=== PATIENT | male | born 1975 | race Caucasian/White ===

== ENCOUNTER 2021-01-20 13:23 | Observation (INO) ==
--- NOTE | 2021-01-20 18:35 | Emergency Department Note ---
History of Present Illness General Chief complaint: Swelling/Edema to Extremity Stated complaint: FEET & ANKLES SWOLLEN & FEELING NUMB Time Seen by Provider: 01/20/21 18:08 Source: patient Mode of arrival: ambulatory Limitations: no limitations History of Present Illness Maximum Pain Intensity: 3 This patient is 45-year-old male comes in with swelling in both of his ankles bilaterally. He first noticed this this morning is had no history of similar. He has some chronic neuropathy and tingling in his feet which is unchanged. No new numbness or weakness. He has had no shortness of breath or chest pain he tells me he has been having intermittent sharp chest pain for at least 6 months but none recently. He was recently hospitalized for depression and has a history of alcoholism he relapsed 2 to 3 weeks ago but has had no alcohol since then he feels he is doing well in the depression and alcohol aspects and denies that he needs help in either those categories he does not feel he is having withdrawal symptoms he is not been shaky. Denies suicidal or homicidal ideations. He has been take his medications as directed denies any overdose or extra medication denies aspirin or Tylenol or any drug use. No history of cardiac disease or pulmonary disease or renal problems. He was recently started on prazosin and mirtazapine. Home Medications Medication Instructions Recorded Confirmed Type mirtazapine 15 mg tablet 15 mg PO HS 01/20/21 01/20/21 History prazosin 1 mg capsule 1 mg PO HS 01/20/21 01/20/21 History Allergies Allergy/AdvReac Type Severity Reaction Status Date / Time No Known Allergies Allergy Mild Unverified 11/18/20 21:46 Past Med/Surg History Medical History (Updated 01/20/21 @ 20:59 by Giuseppe Castro MD) No pertinent past medical history Surgical History No pertinent past surgical history Family History Other No pertinent family history in first degree relatives Social History Smoking Status: Current some day smoker Tobacco Type: Cigarettes Preferred Language: [place] Feels Safe at Home: Yes Immunizations: Past medical historyneuropathy, alcoholism, depression. Denies diabetes or thyroid or kidney disease Review of Systems A total of 10 systems reviewed and were otherwise negative Physical Exam Vital Signs Vital Signs - 24 hr 01/20/21 13:36 01/20/21 19:03 01/20/21 21:04 Temperature 36.8 C Temperature Source Temporal Artery Scan Pulse Rate 78 76 Pulse Rate [Finger] 76 85 Respiratory Rate 18 Blood Pressure 193/110 H Blood Pressure [Left Arm] 183/122 H 178/111 H Blood Pressure Mean 137 Blood Pressure Mean [Left Arm] 142 133 Pulse Oximetry 97 95 95 Oxygen Delivery Method Room Air Room Air Room Air Sepsis Recent Fever Within 48 Hours No Sepsis New/Unexplained Change in Mental Status No Sepsis Action Taken by Nursing No Action Required General: Well developed well nourished not ill-appearing male who appears in no acute distress, breathing comfortably on room air. Normal speech HEENT: Normal cephalic atraumatic. Pupils are equal round and reactive to light. Extraocular movements are intact. Oropharynx is pink with moist mucous membranes. No swelling of the mouth lips or tongue. Neck: Supple with a midline trachea. No meningeal signs or stiffness, no JVD or bruits. No Stridor. Chest: Clear to auscultation bilaterally. No wheezes or rhonchi. No increased work of breathing. Heart: Regular rate and rhythm without murmurs or gallops. Abdomen: Soft nontender, nondistended without rebound guarding or rigidity. Extremities: No cyanosis clubbing. He has trace to 1+ bilateral lower extremity edema in the ankles and shins. no calf tenderness or assymetry Spine/Back. Non tender to palpation. No CVA tenderness Skin: Good turgor without rashes. Neurologic exam: Cranial nerves two through 12 are intact. Motor and sensation are intact and symmetrical throughout. No tremor. Medical Decision Making Differential Diagnosis CHF, medication side effect, renal disease, toxicologic or metabolic, infectio us, DVT, arterial insufficiency, liver or kidney disease Medical Records Attestation: I reviewed the patient's medical records. Home Medications Current Medication List: was personally reviewed by me Laboratory Data Attestation: I reviewed the patient's lab results. Result diagrams: 01/20/21 18:49 01/20/21 19:59 Lab Results 01/20/21 01/20/21 01/20/21 Range/Units 18:49 18:49 18:49 WBC 10.76 (4.8-10.8) K/uL RBC 4.89 (4.7-6.1) M/uL Hgb 15.0 (14.0-18.0) g/dL Hct 43.6 (42-52) % MCV 89.2 (80-100) fL MCH 30.7 (25-34) pg MCHC 34.4 (32-36) g/dL RDW Std Deviation 41.3 (36.4-46.3) fL RDW Coeff of Manish 12.9 (11.5-14.5) % Plt Count 243 (130-400) K/uL MPV 9.8 (7.4-10.4) fL Immature Gran % (Auto) 0.4 % Neut % (Auto) 59.7 % Lymph % (Auto) 29.0 % Nicholas % (Auto) 9.2 % Eos % (Auto) 1.2 % Baso % (Auto) 0.5 % Neut # (Auto) 6.43 (1.4-6.5) K/uL Lymph # (Auto) 3.12 (1.2-3.4) K/uL Nicholas # (Auto) 0.99 H (0.11-0.59) K/uL Eos # (Auto) 0.13 (0-0.5) K/uL Baso # (Auto) 0.05 (0-0.2) K/uL Immature Gran # (Auto) 0.04 H (0.00-0.02) K/uL D-Dimer 530 H* (0-500) ug/L FEU Sodium 141 (136-145) mmol/L Potassium (3.5-5.1) mmol/L Chloride 107 (98-107) mmol/L Carbon Dioxide 23 (21-32) mmol/L Anion Gap 10.0 (3-11) BUN 9 (7-18) mg/dl Creatinine 0.81 (0.6-1.4) mg/dl Est Cr Clr Drug Dosing 169.3 ml/min Est GFR ( Amer) 125.3 ml/min Est GFR (Non-Af Amer) 108.1 ml/min BUN/Creatinine Ratio 11.6 (10-20) Glucose 83 (70-99) mg/dl Calcium 9.1 (8.5-10.1) mg/dl Magnesium (1.8-2.4) mg/dl Total Bilirubin 0.6 (0.2-1) mg/dl AST (15-37) U/L ALT 96 H (12-78) U/L Alkaline Phosphatase 72 (45-117) U/L Troponin I 0.193 H* (0-0.045) ng/ml Total Protein 8.0 (6.4-8.2) gm/dl Albumin 3.7 (3.4-5.0) gm/dl Globulin 4.3 H (2.5-4.0) gm/dl Albumin/Globulin Ratio 0.9 (0.9-2) Lipase 100 (73-393) U/L SARS-CoV-2 (PCR) (Negative) 01/20/21 01/20/21 Range/Units 19:59 20:00 WBC (4.8-10.8) K/uL RBC (4.7-6.1) M/uL Hgb (14.0-18.0) g/dL Hct (42-52) % MCV (80-100) fL MCH (25-34) pg MCHC (32-36) g/dL RDW Std Deviation (36.4-46.3) fL RDW Coeff of Manish (11.5-14.5) % Plt Count (130-400) K/uL MPV (7.4-10.4) fL Immature Gran % (Auto) % Neut % (Auto) % Lymph % (Auto) % Nicholas % (Auto) % Eos % (Auto) % Baso % (Auto) % Neut # (Auto) (1.4-6.5) K/uL Lymph # (Auto) (1.2-3.4) K/uL Nicholas # (Auto) (0.11-0.59) K/uL Eos # (Auto) (0-0.5) K/uL Baso # (Auto) (0-0.2) K/uL Immature Gran # (Auto) (0.00-0.02) K/uL D-Dimer (0-500) ug/L FEU Sodium (136-145) mmol/L Potassium 3.4 L (3.5-5.1) mmol/L Chloride (98-107) mmol/L Carbon Dioxide (21-32) mmol/L Anion Gap (3-11) BUN (7-18) mg/dl Creatinine (0.6-1.4) mg/dl Est Cr Clr Drug Dosing ml/min Est GFR ( Amer) ml/min Est GFR (Non-Af Amer) ml/min BUN/Creatinine Ratio (10-20) Glucose (70-99) mg/dl Calcium (8.5-10.1) mg/dl Magnesium 1.7 L (1.8-2.4) mg/dl Total Bilirubin (0.2-1) mg/dl AST 50 H (15-37) U/L ALT (12-78) U/L Alkaline Phosphatase (45-117) U/L Troponin I (0-0.045) ng/ml Total Protein (6.4-8.2) gm/dl Albumin (3.4-5.0) gm/dl Globulin (2.5-4.0) gm/dl Albumin/Globulin Ratio (0.9-2) Lipase (73-393) U/L SARS-CoV-2 (PCR) NEGATIVE (Negative) Imaging Data Attestation: I personally reviewed and interpreted this imaging study as follows: My Impression: Chest x-rayno acute infiltrate, failure, pneumothorax seen Radiologist's Impression: Chest X-Ray 01/20/21 18:26 XR chest 1V portable CLINICAL HISTORY: Chest Pain. Bilateral leg edema COMPARISON STUDY: No previous studies for comparison. TECHNIQUE: 1 view of the chest FINDINGS: Single frontal view of the chest demonstrates the cardiomediastinal silhouette to be within normal limits. There is asymmetric elevation right hemidiaphragm with crowding of the bronchovascular markings the right lung base. The lungs are otherwise clear of alveolar opacities. There is no evidence for pleural effusion. There is no evidence for vascular congestion. There is no acute osseous pathology. IMPRESSION: No acute cardiopulmonary disease. ACT 112: Negative or not required by law. Electronically signed by: Cole Dodd M.D. 01/20/2021 6:54 PM Venous Doppler Study 01/20/21 20:00 US venous doppler LE BI CLINICAL HISTORY: Bilateral leg swelling COMPARISON: None available at the time of this dictation. TECHNIQUE: Bilateral lower extremity real-time compression venous ultrasound with Color Doppler imaging. Utilizing real-time ultrasonic imaging multiple real time high-resolution ultrasonic images with compression and noncompression maneuvers of the deep ve nous system in addition to color doppler imaging were performed from the common femoral vein through the proximal calf veins. FINDINGS: Currently there is normal compressibility of the deep venous system from the common femoral vein through the proximal calf veins. No current evidence of acute thrombosis is identified. Impression: No evidence of deep venous thrombus. ACT 112: Negative or not required by law. Electronically signed by: Cole Dodd M.D. 01/20/2021 8:46 PM ECG Data Attestation: I personally reviewed and interpreted this ECG as follows: Indication: + other (Lower extremity edema) Rate (beats per minute): 56 Rhythm: + normal sinus (Unusual P wave axis, possible ectopic atrial bradycardia) ECG Intervals/blocks: + Normal QRS, + Normal QT and + Normal MI ECG [place]: + Normal ECG ST segments: + Normal ST segments ECG Findings: no PACs or no PVCs Comparison ECG Date: from (04/28/19) Change: the following changes noted (P wave axis has changed) MDM Narrative This patient comes in as described above. He was placed on a vehicle monitor technician room C9 he has had bilateral lower extremity edema. He looks well. He does not appear to be withdrawing. It symmetrical. His legs not red or warm. IV access was established. EKG was obtained, chest x-ray, and multiple blood testing was obtained. He was reassessed frequently. He does have a history of both alcohol abuse and depression and he says he feels stable on both of these and denies suicidal homicidal ideations and does not feel he needs help for these acutely. His troponin did come back mildly elevated. His EKG does have an unusual axis and may be an ectopic atrial rhythm but there is no ischemic changes. Chest x- ray does not suggest congestive heart failure, pneumonia, or pneumothorax. He has no acute electrolyte or metabolic abnormalities. His D-dimer was mildly elevated in light of this I did ultrasound of his legs they were unremarkable. I did review his medications. He is on prazosin and Remeron which are new. Remeron can cause peripheral edema or potentially exacerbate CHF. He does have a history of alcohol use and is possible he has an cardiomyopathy related to that. I did consult Dr. Helms to see him in the ER for further treatment and evaluation. Continuous cardiac monitoring: An order was placed in EMR for continuous vehicle monitor technician. Upon interpretation patient was done via normal sinus rhythm with a rate of 70. Impression & Plan Ectopic atrial rhythm, Bilateral edema of lower extremity, Elevated troponin, Elevated d-dimer, History of alcohol abuse Discharge Plan Visit Data Chief Complaint: Swelling/Edema to Extremity Stated Complaint: FEET & ANKLES SWOLLEN & FEELING NUMB ED Provider: Giuseppe Castro Discharge Problem: Ectopic atrial rhythm, Bilateral edema of lower extremity, Elevated troponin, Elevated d-dimer, History of alcohol abuse Forms Stand Alone Forms: [facility] [employer] Prescriptions Prescriptions: No Action prazosin 1 mg capsule 1 mg PO HS RF: 0 mirtazapine 15 mg tablet 15 mg PO HS RF: 0 Referrals Referrals: PCP,NO [Physician] -
--- NOTE | 2021-01-20 18:55 | XRay Report ---
XR chest 1V portable CLINICAL HISTORY: Chest Pain. Bilateral leg edema COMPARISON STUDY: No previous studies for comparison. TECHNIQUE: 1 view of the chest FINDINGS: Single frontal view of the chest demonstrates the cardiomediastinal silhouette to be within normal li mits. There is asymmetric elevation right hemidiaphragm with crowding of the bronchovascular markings the right lung base. The lungs are otherwise clear of alveolar opacities. There is no evidence for p leural effusion. There is no evidence for vascular congestion. There is no acute osseous pathology. IMPRESSION: No acute cardiopulmonary disease. ACT 112: Negative or not required by law. Electronically signed by: Cole Dodd M.D. 01/20/2021 6:54 PM
[2021-01-20 19:17] LABS: Basophils # (auto) 0.05 K/uL (0-0.2); Basophils % (auto) 0.5 %; Eosinophils # (auto) 0.13 K/uL (0-0.5); Eosinophils % (auto) 1.2 %; Hematocrit (blood only) 43.6 % (42-52); Immature Granulocytes # (auto) 0.04 K/uL (0.00-0.02); Immature Granulocytes % (auto) 0.4 %; Lymphocytes # (auto) 3.12 K/uL (1.2-3.4); Mean Corpuscular Hemoglobin 30.7 pg (25-34); Mean Corpuscular Hgb Conc 34.4 g/dL (32-36); Mean Corpuscular Volume 89.2 fL (80-100); Mean Platelet Volume 9.8 fL (7.4-10.4); Monocytes # (auto) 0.99 K/uL (0.11-0.59); Monocytes % (auto) 9.2 %; Neutrophils # (auto) 6.43 K/uL (1.4-6.5); Neutrophils % (auto) 59.7 %; Platelet Count 243 K/uL (130-400); RDW Coefficient of Variation 12.9 % (11.5-14.5); RDW Standard Deviation 41.3 fL (36.4-46.3); Red Blood Count 4.89 M/uL (4.7-6.1); White Blood Count 10.76 K/uL (4.8-10.8)
[2021-01-20 19:28] LABS: D Dimer 530 ug/L FEU (0-500)
[2021-01-20 19:55] LABS: Albumin Globulin Ratio 0.9 (0.9-2); Albumin Level 3.7 gm/dl (3.4-5.0); BUN Creatinine Ratio 11.6 (10-20); Bilirubin,Total 0.6 mg/dl (0.2-1); Calcium 9.1 mg/dl (8.5-10.1); Creatinine Clr Calc Pharmacy 169.3 ml/min; Est GFR (African American) 125.3 ml/min; Est GFR (Non-African American) 108.1 ml/min; Globulin 4.3 gm/dl (2.5-4.0); Troponin I 0.193 ng/ml (0-0.045)
[2021-01-20 20:28] LABS: Potassium 3.4 mmol/L (3.5-5.1)
[2021-01-20 20:33] LABS: Magnesium 1.7 mg/dl (1.8-2.4)
--- NOTE | 2021-01-20 20:48 | Ultrasound Report ---
US venous doppler LE BI CLINICAL HISTORY: Bilateral leg swelling COMPARISON: None available at the time of this dictation. TECHNIQUE: Bilateral lower extremity real-time compression venous ultrasound with Color Doppler imagi ng. Utilizing real-time ultrasonic imaging multiple real time high-resolution ultrasonic images with comp ression and noncompression maneuvers of the deep venous system in addition to color doppler imaging w ere performed from the common femoral vein through the proximal calf veins. FINDINGS: Currently there is normal compressibility of the deep venous system from the common femoral vein thro ugh the proximal calf veins. No current evidence of acute thrombosis is identified. Impression: No evidence of deep venous thrombus. ACT 112: Negative or not required by law. Electronically signed by: Cole Dodd M.D. 01/20/2021 8:46 PM
[2021-01-20] MEDS ORDERED: POTASSIUM CHLORIDE CRTAB 20 MEQ TABCR PO STA (22:16)
[2021-01-20 23:22] LABS: Appearance Urine Clear (Clear); Bacteria Urine Automated Negative (Negative); Bilirubin Urine Negative (Negative); Blood Urine Negative (Negative); Cast Urine Automated 0 /lpf (0-5); Color Urine Yellow; Epithelial Cell Urine Auto 0-5 /lpf (0-5); Glucose Urine UA Negative (Negative); Ketones Urine Negative (Negative); Leukocyte Esterase Urine Negative (Negative); Nitrite Urine Negative (Negative); RBC Urine Automated 0-4 /hpf (0-4); Specific Gravity Urine 1.025 (1.000-1.030); Urobilinogen Urine Negative (Negative); pH Urine 7.5 (4.5-7.5)
[2021-01-20 23:35] LABS: Protein Urine 2+ (Negative)
--- NOTE | 2021-01-20 23:36 | History and Physical Report ---
DATE OF ADMISSION: 01/20/2021. CHIEF COMPLAINT: Lower extremity swelling. HISTORY OF PRESENT ILLNESS: This is a 45-year-old male with past medical history significant for alcoholism, depression, generalized anxiety disorder. The patient states he also has high blood pressure, but he is not taking any medications. The patient states he was recently admitted for depression at [facility] 2 weeks ago he was started on medicines, Remeron and prazosin, comes here because of lower extremity edema. The patient says he has noticed his ankle swollen today. Since last 1 week, he has been sick with nausea, vomiting and abdominal discomfort and has some diarrhea, but that got resolved now. Had Sarmad and Sarmad one single shot of COVID vaccine. His COVID PCR negative in the ER. The patient denies any cough or any fevers. He says he has some mild chest discomfort, kind of prickly feeling 4/10 in severity on and off for few months now. Had a headache earlier, but currently no headache, no blurred visions, no runny nose, no sore throat, no cough, no difficulty swallowing. No shortness of breath, no abdominal pain currently. Normal bladder movements. Patient says he used to drink heavily like one bottle of vodka every day, but lately he has cut down, says last drink was about 1 week ago, but he is not getting any withdrawal symptoms. He smokes marijuana every other day. Denies any drug use. ALLERGIES: No known drug allergies. PAST MEDICAL HISTORY: As mentioned above. PAST SURGICAL HISTORY: Skin abscess drainage. MEDICATIONS: Currently placed on prazosin 1 mg p.o. at bedtime, Remeron 250 mg p.o. at bedtime. FAMILY HISTORY: The patient is adopted. SOCIAL HISTORY: Smokes marijuana every other day. Used to drink alcohol 1 bottle of vodka every day, but currently not drinking much, last drink was about a week ago. No drug use. REVIEW OF SYMPTOMS: As per HPI. Rest of the review of symptoms is negative. PHYSICAL EXAMINATION: GENERAL: The patient is of moderate build. The patient is obese, not in acute distress. VITAL SIGNS: Temperature 36.8, pulse 85, respiratory rate 18, blood pressure 178/111, oxygen 95% on room air. HEENT: Pupils equal, round and reactive to light. Oral mucosa moist. NECK: No JVD. No neck masses. CARDIOVASCULAR: S1 and S2 heard. Regular rate and rhythm. No murmur, no gallop. RESPIRATORY SYSTEM: Normal AP diameter. No accessory muscle use. No wheezing, no crackles. ABDOMEN: Soft, bowel sounds present, nontender, no distention. CENTRAL NERVOUS SYSTEM: Cranial nerves II-XII grossly intact, nonfocal. EXTREMITIES: Bilateral ankle edema present, no erythema seen. LABORATORY DATA: WBC 10.7, hemoglobin 15, hematocrit 43.6, platelets 243, D- dimer 530. Sodium 141, potassium 3.4, chloride 107, bicarbonate 23, BUN 9, creatinine 0.8, serum glucose 83, calcium 9.1, magnesium 1.7, total bilirubin 0.6, AST 50, ALT 96, alkaline phosphatase 72. Troponin-I 0.19. Lipase 100. SARS-CoV-2 PCR negative. IMAGING DATA: Venous Doppler negative for DVT. Chest x-ray, no acute cardiopulmonary findings. EKG: Possible atrial bradycardia at a rate of 56. Ectopic atrial rhythm replaced with sinus rhythm. ASSESSMENT AND PLAN: This is a 45-year-old male who presents with lower extremity edema. 1. Lower extremity edema, etiology unclear. Recently started on mirtazapine, prazosin, possibly from meds.. Because of history of alcoholism, will rule out congestive heart failure with echocardiogram, monitor in [employer]. 2. Mild chest discomfort going on for few months now. Mild elevation of troponin, rule out acute coronary syndrome with serial enzymes, echocardiogram, and as D-dimer was elevated rule out pulmonary embolism with CT angio and consult Cardiology in the a.m. for further recommendations.Follow lipid profile. Start on aspirin. The patient also has abnormal ectopic atrial rhythm, monitor in med/tele. 3. Hypokalemia and hypomagnesemia, we will replace. 4. Hypertension, patient's blood pressure is high, he is not taking medications. We will place on nitro paste . follow the blood pressure. 7. Alcoholism. Currently, he says he is not drinking. We will monitor for any withdrawals. ativan p.r.n. We will check , vitamin B12, folate levels. 8. Deep venous thrombosis prophylaxis: Placed him on Lovenox. DISPOSITION: Closely monitor in [employer]. Level 1 full code. Expect to discharge home and follow with family doctor. Job ID: [id number] [facility]
[2021-01-20] MEDS ORDERED: ONDANSETRON INJ 2 MG/ML 2 ML VIAL IV PRN (23:41)
[2021-01-20] MEDS ORDERED: MAGNESIUM SULFATE / D5W 1 GM/100 ML BAG IV ONE (23:41)
[2021-01-20] MEDS ORDERED: ACETAMINOPHEN 325 MG TAB PO PRN (23:41)
[2021-01-20] MEDS ORDERED: NITROGLYCERIN SL 0.4 MG/TAB TAB SL PRN (23:41)
[2021-01-20] MEDS ORDERED: POLYETHYLENE (MIRALAX) 17 GM PACK PO PRN (23:41)
[2021-01-21] MEDS: NITROGLYCERIN 2% OINTMENT 30GM TUBE EXT SCH ×3 (00:20→12:46)
[2021-01-21 06:12] LABS: Basophils # (auto) 0.04 K/uL (0-0.2); Basophils % (auto) 0.6 %; Eosinophils # (auto) 0.15 K/uL (0-0.5); Eosinophils % (auto) 2.1 %; Hemoglobin 14.3 g/dL (14.0-18.0); Immature Granulocytes # (auto) 0.02 K/uL (0.00-0.02); Immature Granulocytes % (auto) 0.3 %; Lymphocytes # (auto) 2.39 K/uL (1.2-3.4); Lymphocytes % (auto) 33.5 %; Mean Corpuscular Hemoglobin 30.4 pg (25-34); Mean Corpuscular Volume 89.4 fL (80-100); Monocytes # (auto) 0.72 K/uL (0.11-0.59); Monocytes % (auto) 10.1 %; Neutrophils # (auto) 3.81 K/uL (1.4-6.5); Neutrophils % (auto) 53.4 %; Platelet Count 236 K/uL (130-400); RDW Standard Deviation 42.3 fL (36.4-46.3); White Blood Count 7.13 K/uL (4.8-10.8)
[2021-01-21 06:34] LABS: BUN Creatinine Ratio 12.9 (10-20); Calcium 8.7 mg/dl (8.5-10.1); Creatinine Clr Calc Pharmacy 184.9 ml/min; Est GFR (Non-African American) 112.2 ml/min; Potassium 3.8 mmol/L (3.5-5.1)
[2021-01-21 07:24] LABS: Folate (Folic Acid) 11.4 ng/ml (>5.38)
--- NOTE | 2021-01-21 07:29 | Electrocardiogram Report ---
Test Reason : Blood Pressure : / mmHG Vent. Rate : 056 BPM Atrial Rate : 056 BPM P-R Int : 166 ms QRS Dur : 090 ms QT Int : 372 ms P-R-T Axes : 256 032 002 degrees QTc Int : 358 ms Unusual P axis, possible ectopic atrial bradycardia Abnormal ECG When compared with ECG of 28-APR-2019 13:35, Ectopic atrial rhythm has replaced Sinus rhythm Vent. rate has decreased BY 51 BPM T wave amplitude has decreased in Anterior leads Confirmed by Leonidas Joya ([id number]) on 01/21/2021 7:29:15 AM Referred By: REFERRED SELF Confirmed By:Heber Joya
--- NOTE | 2021-01-21 07:34 | Electrocardiogram Report ---
Test Reason : Blood Pressure : / mmHG Vent. Rate : 061 BPM Atrial Rate : 061 BPM P-R Int : 202 ms QRS Dur : 094 ms QT Int : 384 ms P-R-T Axes : 119 126 139 degrees QTc Int : 386 ms Suspect arm lead reversal, interpretation assumes no reversal Normal sinus rhythm with 1st degree A-V block Left posterior fascicular block Nonspecific ST and T wave abnormality Abnormal ECG When compared with ECG of 20-JAN-2021 18:45, (unconfirmed) Sinus rhythm has replaced Ectopic atrial rhythm Left posterior fascicular block is now Present T wave inversion no longer evident in Inferior leads T wave inversion now evident in Lateral leads Confirmed by Leonidas Joya ([id number]) on 01/21/2021 7:34:14 AM Referred By: REFERRED SELF Confirmed By:Heber Joya
[2021-01-21] MEDS ORDERED: ENOXAPARIN INJ 40 MG/0.4 ML SYR SQ SCH (09:00)
[2021-01-21] MEDS ORDERED: ASPIRIN 81 MG ECTAB PO SCH (09:00)
[2021-01-21] MEDS ORDERED: OPTIRAY 320 125ml IV ONE (09:13)
--- NOTE | 2021-01-21 09:26 | CT Scan Report ---
CT ANGIOGRAM OF THE CHEST CLINICAL HISTORY: Atypical chest pain. Elevated d-dimer. COMPARISON STUDY: Chest x-ray dated 01/20/2021. TECHNIQUE: Following the IV administration of 120 cc of Optiray 320, CT angiogram of the chest was pe rformed from the upper abdomen to the thoracic inlet utilizing the pulmonary embolus protocol. Images are reviewed in the axial, sagittal, and coronal planes. 3-D MIPS images are created and assessed. I V contrast was administered without complication. A dose lowering technique was utilized adhering to the principles of ALARA. CT DOSE: 760.86 mGy.cm FINDINGS: Thyroid: Imaged portions of the thyroid gland are normal in size and attenuation. Thoracic aorta: The thoracic aorta is normal in caliber and demonstrates standard 3-vessel arch anato my. No dissection is seen. Pulmonary vasculature: The pulmonary trunk is normal in caliber. There are no filling defects identif ied in main, lobar, or segmental pulmonary branches to suggest pulmonary embolus. Heart: The heart is normal in size and without pericardial effusion. Lungs and pleural spaces: Evaluation of the lung parenchyma is modestly degraded by motion artifact. There is no airspace consolidation or pleural effusion. Minimal atelectasis is seen at the lung bases . The trachea and central airways are clear. There is mild diffuse peribronchial thickening. Mediastinum: There is no mediastinal lymphadenopathy. [place]: Clear. Axillae: There is no axillary lymphadenopathy. Upper abdomen: There is severe hepatic steatosis. A tiny hiatal hernia is noted. Skeletal structures: No lytic or blastic bony lesions are seen. IMPRESSION: 1. There is no evidence of pulmonary embolus in the main, lobar, or segmental pulmonary arteries. 2. There is no airspace consolidation or pleural effusion. 3. Mild diffuse peribronchial thickening suggests bronchitis/reactive airway disease. Clinical correl ation will be required. 4. Severe hepatic steatosis. ACT 112: Negative or not required by law. Electronically signed by: Forrest Pennington M.D. 01/21/2021 9:24 AM
--- NOTE | 2021-01-21 11:49 | Cardiology Consultation ---
Date of Consultation January 21, 2021 Assessment & Plan (1) Depression with suicidal ideation: (2) Bilateral edema of lower extremity: (3) Elevated troponin: (4) History of alcohol abuse: Prazosin is known to cause lower extremity edema as well as orthostatic hypotension. This medication was recently started through rehab and a psychiatrist. I am going to stop this medication today as it can cause problems with orthostatic dizziness and syncope as well as lower extremity edema. He really does not have cardiac chest pain at least by history. He does have some atypical intermittent chest discomfort which is related I believe to his anxiety and perhaps sensed ectopy during quiet times. Unfortunately, we have abnormal cardiac troponins. They do not really increase or decrease over time, so I do not believe that this is related to acute coronary syndrome. It could be relate d to his ongoing alcohol use. EKG suggests an ectopic atrial rhythm. Echocardiogram shows normal LV function. I think it is best that we perform an exercise stress echocardiogram and if that study is negative I think he can be discharged to outpatient follow-up. If the stress test however, suggest coronary ischemia then he will undergo a cardiac catheterization. Further evaluation and treatment following the above. History of Present Illness Attending Physician: Alex Luong MD History of Present Illness This is a no significant heart disease. Is a teenager he was diagnosed with mitral valve prolapse due to atypical chest pain and heart palpitations. He still occasionally has those symptoms but they are atypical and that they mainly occur when he is sick quiet rest. Patient has a history of depression, anxiety disorder and alcoholism. Patient admits that he has spent the last several months in rehab for his alcohol problems and depression. He was only recently released. According to the patient he came in because he was having swelling of his ankles which was new and concerned him. He had no chest pain. No shortness of breath with activity or dyspnea. His admitting EKG shows no acute changes. Unfortunately, cardiac markers were drawn and he has a borderline elevation of his troponins. No significant increase or decrease in his cardiac troponins. A resting echocardiogram was obtained that shows no wall motion abnormalities with normal LV function and no significant valvular pathology. He has no ongoing complaints today. He former smoker. He denies diabetes or hyperlipidemia. There is no strong family history of early heart disease. Allergies Allergy/AdvReac Type Severity Reaction Status Date / Time No Known Allergies Allergy Mild Unverified 11/18/20 21:46 Home Medications Medication Instructions Recorded Confirmed Type mirtazapine 15 mg tablet 15 mg PO HS 01/20/21 01/20/21 History prazosin 1 mg capsule 1 mg PO HS 01/20/21 01/20/21 History Patient History Medical History No pertinent past medical history Surgical History No pertinent past surgical history Family History Other No pertinent family history in first degree relatives Social History Smoking Status: Former smoker Tobacco Type: Cigarettes Second Hand Exposure: No; Do You Dip or Chew Tobacco: No; Hx Alcohol Use: Yes Alcohol type: hard liquor Hx Substance Use: Yes Last Used Substance: Days (ago) Preferred Language: Albanian Communication Ability: Effective Coke Wheeler Required: No Beliefs That Will Affect Care: None Current Living Situation: Alone How many Children do You have: 1 Other Information That Helps Us Care for You: No Feels Safe at Home: Yes Safety Concerns: Feels Safe At This Time Assistive Devices: None Review of Systems Review of Systems: Review of Systems: See HPI for pertinent positives. All other 10 point review of systems are negative. Physical Exam Physical Exam: General: no acute distress and stated age Head: normocephalic, no masses, lesions, tenderness or abnormalities Eyes: conjunctiva are pink and non-injected, sclera clear Neck: supple, no adenopathy, no bruits, normal jugular venous pulse, no hepatojugular reflux Chest: normal shape and normal respiratory effort Lungs: clear to auscultation and percussion Cardiac Exam: - regular rate & rhythm, no murmurs gallops or rubs - normal S1, normal S2 Pulses: 2(+) throughout Abdomen: abdomen soft, non-tender, no abnormal masses and no hepatosplenomegaly Musculoskeletal: no gait disturbance, no joint inflammation, no deforming arthritis Extremities: no edema and no cyanosis Neuro: grossly normal exam Results & Data ([facility]) Vital Signs (Past 12 Hours) Vital Signs Temp Pulse Pulse Resp BP Pulse Ox 01/21/21 11:15 36.5 C 72 18 160/87 H 94 01/21/21 07:57 36.6 C 64 18 162/84 H 95 01/21/21 07:16 62 01/21/21 01:15 65 01/21/21 01:00 36.8 C 58 L 16 156/90 H 94 Laboratory Results Laboratory Results - last 24 hr 01/20/21 01/20/21 01/20/21 18:49 18:49 18:49 WBC 10.76 RBC 4.89 Hgb 15.0 Hct 43.6 MCV 89.2 MCH 30.7 MCHC 34.4 RDW Std Deviation 41.3 RDW Coeff of Manish 12.9 Plt Count 243 MPV 9.8 Immature Gran % (Auto) 0.4 Neut % (Auto) 59.7 Lymph % (Auto) 29.0 Todd % (Auto) 9.2 Eos % (Auto) 1.2 Baso % (Auto) 0.5 Neut # (Auto) 6.43 Lymph # (Auto) 3.12 Todd # (Auto) 0.99 H Eos # (Auto) 0.13 Baso # (Auto) 0.05 Immature Gran # (Auto) 0.04 H D-Dimer 530 H* Sodium 141 Potassium Chloride 107 Carbon Dioxide 23 Anion Gap 10.0 BUN 9 Creatinine 0.81 Est Cr Clr Drug Dosing 169.3 Est GFR ( Amer) 125.3 Est GFR (Non-Af Amer) 108.1 BUN/Creatinine Ratio 11.6 Glucose 83 Calcium 9.1 Magnesium Total Bilirubin 0.6 AST ALT 96 H Alkaline Phosphatase 72 Troponin I 0.193 H* Total Protein 8.0 Albumin 3.7 Globulin 4.3 H Albumin/Globulin Ratio 0.9 Lipase 100 Vitamin B12 Folate Urine Color Urine Appearance Urine pH Ur Specific [place] Urine Protein Urine Glucose (UA) Urine Ketones Urine Blood Urine Nitrite Urine Bilirubin Urine Urobilinogen Ur Leukocyte Esterase Urine WBC (Auto) Urine RBC (Auto) U Hyaline Cast (Auto) U Epithel Cells (Auto) Urine Bacteria (Auto) SARS-CoV-2 (PCR) 01/20/21 01/20/21 01/20/21 19:59 20:00 22:45 WBC RBC Hgb Hct MCV MCH MCHC RDW Std Deviation RDW Coeff of Manish Plt Count MPV Immature Gran % (Auto) Neut % (Auto) Lymph % (Auto) Todd % (Auto) Eos % (Auto) Baso % (Auto) Neut # (Auto) Lymph # (Auto) Todd # (Auto) Eos # (Auto) Baso # (Auto) Immature Gran # (Auto) D-Dimer Sodium Potassium 3.4 L Chloride Carbon Dioxide Anion Gap BUN Creatinine Est Cr Clr Drug Dosing Est GFR ( Amer) Est GFR (Non-Af Amer) BUN/Creatinine Ratio Glucose Calcium Magnesium 1.7 L Total Bilirubin AST 50 H ALT Alkaline Phosphatase Troponin I Total Protein Albumin Globulin Albumin/Globulin Ratio Lipase Vitamin B12 Folate Urine Color Yellow Urine Appearance Clear Urine pH 7.5 Ur Specific [place] 1.025 Urine Protein 2+ H Urine Glucose (UA) Negative Urine Ketones Negative Urine Blood Negative Urine Nitrite Negative Urine Bilirubin Negative Urine Urobilinogen Negative Ur Leukocyte Esterase Negative Urine WBC (Auto) 1-5 Urine RBC (Auto) 0-4 U Hyaline Cast (Auto) 0 U Epithel Cells (Auto) 0-5 Urine Bacteria (Auto) Negative SARS-CoV-2 (PCR) NEGATIVE 01/21/21 01/21/21 01/21/21 05:21 05:21 05:21 WBC 7.13 RBC 4.70 Hgb 14.3 Hct 42.0 MCV 89.4 MCH 30.4 MCHC 34.0 RDW Std Deviation 42.3 RDW Coeff of Manish 13.0 Plt Count 236 MPV 10.0 Immature Gran % (Auto) 0.3 Neut % (Auto) 53.4 Lymph % (Auto) 33.5 Todd % (Auto) 10.1 Eos % (Auto) 2.1 Baso % (Auto) 0.6 Neut # (Auto) 3.81 Lymph # (Auto) 2.39 Todd # (Auto) 0.72 H Eos # (Auto) 0.15 Baso # (Auto) 0.04 Immature Gran # (Auto) 0.02 D-Dimer Sodium Potassium Chloride Carbon Dioxide Anion Gap BUN Creatinine Est Cr Clr Drug Dosing Est GFR ( Amer) Est GFR (Non-Af Amer) BUN/Creatinine Ratio Glucose Calcium Magnesium Total Bilirubin AST ALT Alkaline Phosphatase Troponin I 0.205 H* Total Protein Albumin Globulin Albumin/Globulin Ratio Lipase Vitamin B12 612 Folate 11.40 Urine Color Urine Appearance Urine pH Ur Specific [place] Urine Protein Urine Glucose (UA) Urine Ketones Urine Blood Urine Nitrite Urine Bilirubin Urine Urobilinogen Ur Leukocyte Esterase Urine WBC (Auto) Urine RBC (Auto) U Hyaline Cast (Auto) U Epithel Cells (Auto) Urine Bacteria (Auto) SARS-CoV-2 (PCR) 01/21/21 05:21 WBC RBC Hgb Hct MCV MCH MCHC RDW Std Deviation RDW Coeff of Manish Plt Count MPV Immature Gran % (Auto) Neut % (Auto) Lymph % (Auto) Todd % (Auto) Eos % (Auto) Baso % (Auto) Neut # (Auto) Lymph # (Auto) Todd # (Auto) Eos # (Auto) Baso # (Auto) Immature Gran # (Auto) D-Dimer Sodium 140 Potassium 3.8 Chloride 108 H Carbon Dioxide 23 Anion Gap 9.0 BUN 10 Creatinine 0.74 Est Cr Clr Drug Dosing 184.9 Est GFR ( Amer) 130.0 Est GFR (Non-Af Amer) 112.2 BUN/Creatinine Ratio 12.9 Glucose 88 Calcium 8.7 Magnesium 2.0 Total Bilirubin AST ALT Alkaline Phosphatase Troponin I Total Protein Albumin Globulin Albumin/Globulin Ratio Lipase Vitamin B12 Folate Urine Color Urine Appearance Urine pH Ur Specific [place] Urine Protein Urine Glucose (UA) Urine Ketones Urine Blood Urine Nitrite Urine Bilirubin Urine Urobilinogen Ur Leukocyte Esterase Urine WBC (Auto) Urine RBC (Auto) U Hyaline Cast (Auto) U Epithel Cells (Auto) Urine Bacteria (Auto) SARS-CoV-2 (PCR) Medications Administered Current Inpatient Medications Acetaminophen (Acetaminophen 325 Mg Tab) 650 mg PO Q4H PRN PRN Reason: Pain or Fever Stop: 02/19/21 23:40 Aspirin (Aspirin 81 Mg Ectab) 81 mg PO QAM JOSE ARMANDO Stop: 02/20/21 08:59 Last Admin: 01/21/21 08:54 Dose: 81 mg Documented by: Enoxaparin Sodium (Enoxaparin Inj 40 Mg/0.4 Ml Syr) 40 mg SQ Q24H JOSE ARMANDO Stop: 02/20/21 08:59 Last Admin: 01/21/21 08:54 Dose: 40 mg Documented by: Mirtazapine (Mirtazapine Tab 15 Mg Tab) 15 mg PO HS [facility] Stop: 02/20/21 20:59 Nitroglycerin (Nitroglycerin Sl 0.4 Mg/Tab Tab) 0.4 mg SL UD PRN PRN Reason: Chest Pain Stop: 02/19/21 23:40 Nitroglycerin (Nitroglycerin 2% Ointment 30gm Tube) 0.5 inch EXT Q6 JOSE ARMANDO Stop: 02/20/21 00:00 Last Admin: 01/21/21 06:18 Dose: 0.5 inch Documented by: Ondansetron HCl (Ondansetron Inj 2 Mg/Ml 2 Ml Vial) 4 mg IV Q6H PRN PRN Reason: Nausea Stop: 02/19/21 23:40 Polyethylene Glycol (Polyethylene (Miralax) 17 Gm Pack) 17 gm PO DAILY PRN PRN Reason: Constipation Stop: 02/19/21 23:40
[2021-01-21] MEDS ORDERED: traMADol HCL 50 MG TABLET PO PRN (12:31)
[2021-01-21] MEDS ORDERED: lisinopril 10 MG TAB PO SCH (14:30)
--- NOTE | 2021-01-21 14:42 | Hospitalist Progress Note ---
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, no further cardiac testing at this point management of HTN noted below HYPERTENSION change Prazosin to Lisinopril 10mg po daily ASA 81mg po daily close outpatient ff up ALCOHOLISM counseled on cessation outpatient Psychiatry ff up plan of care discussed with patient in detail and at length all questions answered he is understanding, agreeable, comfortable with the plan of care Admission and Anticipated Discharge Date Admission Date: January 20, 2021 Subjective ff up for chest pain, leg swelling, etc seen sitting up in bed, comfortable not in distress states he feels fine overall has mild headache no chest pain, dyspnea, palpitations, dizziness no abdominal pain ,nausea states leg swelling has resolved no other symptoms Review of Systems Review of Systems: all noted and negative except for above Physical Exam Physical Exam: General- oriented x 3, not in distress, speaks in sentences with no effort or accessory muscle use Head- atraumatic Eyes- PERRL, EOMI, anicteric ENT- oropharynx clear Neck- supple, no JVD, no adenopathy, no thyromegaly; carotids +2/2, no bruits ap preciated Lungs- clear to auscultation bilaterally, no rales/wheezes Heart- normal rate, regular rhythm; no murmur, no gallop, no rub appreciated Abdomen- normal bowel sounds, nondistended, soft, nontender, no masses or hepatosplenomegaly Extremities- no pretibial edema, no calf tenderness; peripheral pulses intact Neuro- alert, oriented x 3; CN 2-12 grossly intact; motor 5/5 bilaterally;sen sation 100% on all extremities; no other gross focal neurologic deficits Skin- warm & dry Results & Data Results & Data ([facility]) Vital Signs (Past 12 Hours) Vital Signs Temp Pulse Pulse Resp BP Pulse Ox 01/21/21 11:15 36.5 C 72 18 160/87 H 94 01/21/21 07:57 36.6 C 64 18 162/84 H 95 01/21/21 07:16 62 all noted and reviewed including below
--- NOTE | 2021-01-21 14:43 | Discharge Summary ---
Date of Service January 21, 2021 Admission HPI Per Admitting Provider HISTORY OF PRESENT ILLNESS: This is a 45-year-old male with past medical history significant for alcoholism, depression, generalized anxiety disorder. The patient states he also has high blood pressure, but he is not taking any medications. The patient states he was recently admitted for depression at [facility] 2 weeks ago he was started on medicines, Remeron and prazosin, comes here because of lower extremity edema. The patient says he has noticed his ankle swollen today. Since last 1 week, he has been sick with nausea, vomiting and abdominal discomfort and has some diarrhea, but that got resolved now. Had Sarmad and Sarmad one single shot of COVID vaccine. His COVID PCR negative in the ER. The patient denies any cough or any fevers. He says he has some mild chest discomfort, kind of prickly feeling 4/10 in severity on and off for few months now. Had a headache earlier, but currently no headache, no blurred visions, no runny nose, no sore throat, no cough, no difficulty swallowing. No shortness of breath, no abdominal pain currently. Normal bladder movements. Patient says he used to drink heavily like one bottle of vodka every day, but lately he has cut down, says last drink was about 1 week ago, but he is not getting any withdrawal symptoms. He smokes marijuana every other day. Denies any drug use. ALLERGIES: No known drug allergies. PAST MEDICAL HISTORY: As mentioned above. PAST SURGICAL HISTORY: Skin abscess drainage. MEDICATIONS: Currently placed on prazosin 1 mg p.o. at bedtime, Remeron 250 mg p.o. at bedtime. FAMILY HISTORY: The patient is adopted. SOCIAL HISTORY: Smokes marijuana every other day. Used to drink alcohol 1 bottle of vodka every day, but currently not drinking much, last drink was about a week ago. No drug use. REVIEW OF SYMPTOMS: As per HPI. Rest of the review of symptoms is negative. Admission Exam (Per Admitting) Constitutional PHYSICAL EXAMINATION: GENERAL: The patient is of moderate build. The patient is obese, not in acute distress. VITAL SIGNS: Temperature 36.8, pulse 85, respiratory rate 18, blood pressure 178/111, oxygen 95% on room air. HEENT: Pupils equal, round and reactive to light. Oral mucosa moist. NECK: No JVD. No neck masses. CARDIOVASCULAR: S1 and S2 heard. Regular rate and rhythm. No murmur, no gallop. RESPIRATORY SYSTEM: Normal AP diameter. No accessory muscle use. No wheezing, no crackles. ABDOMEN: Soft, bowel sounds present, nontender, no distention. CENTRAL NERVOUS SYSTEM: Cranial nerves II-XII grossly intact, nonfocal. EXTREMITIES: Bilateral ankle edema present, no erythema seen. Discharge Data Consultations 01/20/21 20:02 ED Decision to Admit Stat 01/21/21 08:00 Consult Cardiology Routine Procedures Performed CT ANGIOGRAM OF THE CHEST CLINICAL HISTORY: Atypical chest pain. Elevated d-dimer. COMPARISON STUDY: Chest x-ray dated 01/20/2021. TECHNIQUE: Following the IV administration of 120 cc of Optiray 320, CT angiogram of the chest was performed from the upper abdomen to the thoracic inlet utilizing the pulmonary embolus protocol. Images are reviewed in the axial, sagittal, and coronal planes. 3-D MIPS images are created and assessed. IV contrast was administered without complication. A dose lowering technique was utilized adhering to the principles of ALARA. CT DOSE: 760.86 mGy.cm FINDINGS: Thyroid: Imaged portions of the thyroid gland are normal in size and attenuation. Thoracic aorta: The thoracic aorta is normal in caliber and demonstrates standard 3-vessel arch anatomy. No dissection is seen. Pulmonary vasculature: The pulmonary trunk is normal in caliber. There are no filling defects identified in main, lobar, or segmental pulmonary branches to suggest pulmonary embolus. Heart: The heart is normal in size and without pericardial effusion. Lungs and pleural spaces: Evaluation of the lung parenchyma is modestly degraded by motion artifact. There is no airspace consolidation or pleural effusion. Minimal atelectasis is seen at the lung bases. The trachea and central airways are clear. There is mild diffuse peribronchial thickening. Mediastinum: There is no mediastinal lymphadenopathy. [place]: Clear. Axillae: There is no axillary lymphadenopathy. Upper abdomen: There is severe hepatic steatosis. A tiny hiatal hernia is noted. Skeletal structures: No lytic or blastic bony lesions are seen. IMPRESSION: 1. There is no evidence of pulmonary embolus in the main, lobar, or segmental pulmonary arteries. 2. There is no airspace consolidation or pleural effusion. 3. Mild diffuse peribronchial thickening suggests bronchitis/reactive airway disease. Clinical correlation will be required. 4. Severe hepatic steatosis. ACT 112: Negative or not required by law. US venous doppler LE BI CLINICAL HISTORY: Bilateral leg swelling COMPARISON: None available at the time of this dictation. TECHNIQUE: Bilateral lower extremity real-time compression venous ultrasound with Color Doppler imaging. Utilizing real-time ultrasonic imaging multiple real time high-resolution ultrasonic images with compression and noncompression maneuvers of the deep venous system in addition to color doppler imaging were performed from the common femoral vein through the proximal calf veins. FINDINGS: Currently there is normal compressibility of the deep venous system from the common femoral vein through the proximal calf veins. No current evidence of acute thrombosis is identified. Impression: No evidence of deep venous thrombus. ACT 112: Negative or not required by law. 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
[2021-01-21] MEDS ORDERED: PRAZOSIN HCL 1 MG CAP PO SCH (21:00)
[2021-01-21] MEDS ORDERED: MIRTAZAPINE TAB 15 MG TAB PO SCH (21:00)
== END 2021-01-21 17:04 | disposition home or self-care (01) | DRG 948 ==
LOC: ED 13:23 → INTOOBSV 21:56 → EDINP 21:56 → 2N 01-21 01:00